=== PATIENT | male | born 2000 | race Two or more races ===

== ENCOUNTER 2019-05-19 21:41 | Emergency (ER) | payer OTHER, MEDICAID ==
--- NOTE | 2019-05-19 22:51 | EDM.PDOC ---
ED HPI GENERAL MEDICAL PROBLEM - General Chief Complaint: Gastrointestinal Problem Stated Complaint: RECENT MULTIPLE SURGERYS ABDOMIN SENT BY DOC Time Seen by Provider: 05/19/19 22:51 Source of Information: Reports: Patient History Limitations: Reports: No Limitations - History of Present Illness INITIAL COMMENTS - FREE TEXT/NARRATIVE: 18-year-old male presents to the ED with generalized mid abdominal cramping pain with emesis x3 in the last 5 hours. Mostly dry heaves at this point time. Initial emesis was mostly bilious. He did have a semi-formed bowel movement this morning without blood. History is positive for small bowel obstruction on May 10 requiring open laparotomy and removal of his appendix. This was done by Dr. Trevino general surgeon at [facility]. He was kept in hospital until Monday morning April 16 when he was discharged home. He has been slowly resuming a normal diet up until today. At present he feels bloated like he ate a pizza. He has not had very much to eat today at all. Has not passed any flatus for at least 10 hours. Patient had previous SHANNON fistula repair as a youngster and has a left upper quadrant laparotomy as part of that repair many years ago. Onset: Today Onset Date: 05/19/19 Onset Time: 09:00 (Feeling well after bowel movement this morning with generalized intermittent periumbilical cramping pain. He then started to feel more bloated and distended like eating a whole pizza.) Duration: Hour(s):, Getting Worse (Not passed any flatus for at least 10 hours.) Location: Reports: Abdomen Quality: Reports: Same as Previous Episode (His previous episode except the pain was much worse last time on May 10) Severity: Moderate (5-6 out of 10) Improves with: Reports: None Worsens with: Reports: Other Context: Denies: Activity, Exercise (In any fluids makes the pain worse), Lifting, Sick Contact, Trauma, Other Associated Symptoms: Reports: Loss of Appetite, Malaise, Nausea/Vomiting (He has vomited 3 times tonight. Initial emesis was bilious and then it has been mostly dry heaves.). 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 Denies: Fever, Chills HEENT: Reports: No Symptoms Respiratory: Reports: No Symptoms Cardiovascular: Reports: No Symptoms Endocrine: Reports: Fatigue GI/Abdominal: Reports: Abdominal Pain (Mostly periumbilical cramping but occasionally will shoot across both upper and left mid abdomen. No pain in his back.), Nausea ( this morning without blood), Vomiting, Other (Bowel movement) : Reports: No Symptoms (X3 tonight.) Musculoskeletal: Reports: No Symptoms Skin: Reports: No Symptoms Neurological: Reports: Dizziness (Dizzy when he stands up.) Psychiatric: Reports: No Symptoms Hematologic/Lymphatic: Reports: No Symptoms Immunologic: Reports: No Symptoms ED EXAM, GI/ABD - Physical Exam Exam: See Below Exam Limited By: No Limitations General Appearance: Alert, WD/WN, Mild Distress, Other (Temperature is 37.3 with a heart rate of 64 and sinus respiratory is 20 with O2 sats of 99% on room air. BP slightly elevated at 144/93.) Eyes: Bilateral: Normal Appearance (No scleral icterus or blepharal pallor.) Throat/Mouth: Other Head: Atraumatic, Normocephalic (Lung is mildly dry and coated.) Neck: Normal Inspection, Supple, Non-Tender, Full Range of Motion. No: Carotid Bruit, Lymphadenopathy (L), Lymphadenopathy (R) Respiratory/Chest: Lungs Clear, Normal Breath Sounds, No Accessory Muscle Use, Respiratory Distress (Mild tachypnea at rest.) Cardiovascular: Normal Peripheral Pulses, Regular Rate, Rhythm, No Edema, No Gallop, No Murmur, No Rub GI/Abdominal Exam: Tender, Abnormal Bowel Sounds (Sounds are hyperactive in all 4 quadrants.), Other (Mostly around the mid abdomen. And has a midline laparotomy wound that from the xiphisternum to the pubic symphysis with darrius in place. The wound is healing nicely without any signs of infection. There is an old healed left upper quadrant transverse incision from T-E fistula repair. Also a drain wound left upper quadrant of the abdomen that has scarred down from remote surgery) (Male) Exam: No Hernia Back Exam: Normal Inspection, Full Range of Motion. No: CVA Tenderness (L), CVA Tenderness (R) Extremities: Normal Inspection, Normal Range of Motion, Non-Tender, No Pedal Edema Neurological: Alert, Oriented, CN II-XII Intact, Normal Cognition Psychiatric: Anxious Skin Exam: Warm, Dry, Intact, Normal Color, No Rash Course - Vital Signs Last Recorded V/S: Last Vital Signs Temp 37.3 C 05/19/19 22:36 Pulse 64 05/19/19 22:36 Resp 20 05/19/19 22:36 BP 144/93 H 05/19/19 22:36 Pulse Ox 99 05/19/19 22:36 - Orders/Labs/Meds Orders: Active Orders 24 hr Category Date Time Status Gastrointestinal Tube Mgmt [RC] ASDIRECTED Care 05/20/19 01:25 Active Abdomen 1V Flat [CR] Stat Exams 05/19/19 23:01 Taken Abdomen Pelvis w Cont [CT] Stat Exams 05/20/19 00:01 Taken Dextrose 5%-0.9% NaCl [Dextrose 5%-Normal Saline] 1,000 Med 05/19/19 23:00 Active ml IV ASDIRECTED Sodium Chloride 0.9% [Saline Flush] Med 05/20/19 01:00 Active 10 ml FLUSH ONETIME PRN Nasogastric Orogastric Tube Insertion [OM.PC] Routine Oth 05/20/19 01:25 Ordered Medication Orders Dextrose/Sodium Chloride (Dextrose 5%-Normal Saline) 1,000 mls @ 999 mls/hr IV ASDIRECTED VICTORIANO Last Admin: 05/19/19 23:50 Dose: 999 mls/hr Sodium Chloride (Saline Flush) 10 ml FLUSH ONETIME PRN PRN Reason: KEEP VEIN OPEN Last Admin: 05/20/19 00:46 Dose: 10 ml Labs: Laboratory Tests 05/19/19 05/19/19 05/19/19 Range/Units 23:30 23:30 23:30 WBC 8.81 (4.23-9.07) K/mm3 RBC 5.34 (4.63-6.08) M/mm3 Hgb 14.9 (13.7-17.5) gm/dl Hct 44.7 (40.1-51.0) % MCV 83.7 (79.0-92.2) fl MCH 27.9 (25.7-32.2) pg MCHC 33.3 (32.2-35.5) g/dl RDW Std Deviation 38.6 (35.1-43.9) fL Plt Count 390 H (163-337) K/mm3 MPV 9.6 (9.4-12.3) fl Neutrophils % (Manual) 76 H (40-60) % Band Neutrophils % 0 (0-10) % Lymphocytes % (Manual) 17 L (20-40) % Atypical Lymphs % 0 % Monocytes % (Manual) 7 (2-10) % Eosinophils % (Manual) 0 L (0.8-7.0) % Basophils % (Manual) 0 L (0.2-1.2) Platelet Estimate Adequate RBC Morph Comment Normal PT 12.0 (9.7-12.0) SECONDS INR 1.11 APTT 35 H (22-31) SECONDS Sodium 137 (136-145) mEq/L Potassium 4.3 (3.5-5.1) mEq/L Chloride 101 (98-107) mEq/L Carbon Dioxide 25 (21-32) mEq/L Anion Gap 15.3 H (5-15) BUN 16 (7-18) mg/dL Creatinine 0.8 (0.7-1.3) mg/dL Est Cr Clr Drug Dosing 130.54 mL/min Estimated GFR (MDRD) > 60 (>60) mL/min BUN/Creatinine Ratio 20.0 H (14-18) Glucose 93 (74-106) mg/dL Calcium 9.7 (8.5-10.1) mg/dL Magnesium 1.9 (1.8-2.4) mg/dl Total Bilirubin 0.4 (0.2-1.0) mg/dL AST 14 L (15-37) U/L ALT 24 (16-63) U/L Alkaline Phosphatase 104 (46-116) U/L C-Reactive Protein 1.5 H* (<1.0) mg/dL Total Protein 8.4 H (6.4-8.2) g/dl Albumin 4.0 (3.4-5.0) g/dl Globulin 4.4 gm/dL Albumin/Globulin Ratio 0.9 L (1-2) Lipase 1062 H (73-393) U/L Meds: Medications Generic Name Dose Route Start Last Admin Trade Name Freq PRN Reason Stop Dose Admin Dextrose/Sodium Chloride 1,000 mls @ 999 mls/hr 05/19/19 23:00 05/19/19 23:50 Dextrose 5%-Normal Saline IV 999 mls/hr ASDIRECTED VICTORIANO Administration Sodium Chloride 10 ml 05/20/19 01:00 05/20/19 00:46 Saline Flush FLUSH 10 ml ONETIME PRN Administration KEEP VEIN OPEN Discontinued Medications Generic Name Dose Route Start Last Admin Trade Name Freq PRN Reason Stop Dose Admin Diatrizoate Meglum/Diatrizoate Sod 30 ml 05/20/19 01:00 05/20/19 00:46 Gastrografin 37% PO 05/20/19 01:01 30 ml ONETIME ONE Administration Hydromorphone HCl 0.25 mg 05/19/19 23:00 05/19/19 23:49 Dilaudid IVPUSH 05/19/19 23:01 0.25 mg ONETIME ONE Administration Hydromorphone HCl 0.25 mg 05/20/19 01:13 05/20/19 01:21 Dilaudid IVPUSH 05/20/19 01:14 0.25 mg ONETIME ONE Administration Iopamidol 100 ml 05/20/19 01:00 05/20/19 00:46 Isovue-300 (61%) IVPUSH 05/20/19 01:01 100 ml ONETIME ONE Administration Lidocaine HCl 10 ml 05/20/19 01:02 05/20/19 01:10 Xylocaine 2% Jelly MUCMEM 05/20/19 01:03 10 ml ONETIME ONE Administration Metoclopramide HCl 5 mg 05/19/19 22:59 05/19/19 23:49 Reglan IVPUSH 05/19/19 23:00 5 mg ONETIME ONE Administration Oxycodone/Acetaminophen 2 tab 05/19/19 23:53 Percocet 325-5 Mg PO 05/19/19 23:54 ONETIME ONE - Radiology Interpretation Free Text/Narrative:: 18-year-old male presents to the ED with recurrence of nausea vomiting and central abdominal cramping pain. On May 10 he underwent emergency surgery for a small bowel obstruction which apparently was a high small bowel obstruction. He has undergone repair of TE fistula as a youngster and has a transverse scar in his left upper quadrant of the abdomen. He remained in hospital until Monday, May 17. His nasogastric tube was pulled the day prior to discharge. He had started take clear fluids and was just trying to take soft diet today. He did have a normal bowel movement this morning. However he started to feel unwell after that bowel movement about 9 or 10:00 this morning and has felt gradually more distended as the day has gone on. Reports that has not passed any flatus for about 10 hours. Nauseated and still having central abdominal periumbilical cramping pain. Reveals mild tympany to percussion. His midline laparotomy wound still has darrius in it and is healing appropriately without any signs of infection. No localized tenderness appreciated. And KUB to be done. Routine labs to be done including a serum lipase. IV will be D5 normal saline at open. He will be given Reglan 5 mg IV and Dilaudid 0.25 mg IV as apparently he is very sensitive to narcotics. - Re-Assessments/Exams Free Text/Narrative Re-Assessment/Exam: 05/19/19 23:56 films of the abdomen reveal a largely dilated portion of bowel or stomach in the left upper quadrant of the abdomen. There appears to be a high bowel obstruction. I cannot be sure if this is stomach or markedly dilated bowel. Plan will be to pursue CT of the abdomen and pelvis with IV contrast and a small amount of oral contrast since he has been vomiting. 05/20/19 00:17 Labs reveal a normal white count at 8.81. Differential pending hemoglobin is 14.9 with hematocrit of 44.7. Platelet count 390,000. PT is 12.0 with an INR slightly elevated at 1.11. PTT is 35. Sodium 137 with a potassium of 4.3. Chloride is 101 with a bicarb of 25. Anion gap is 15.3. BUN is 16 with a creatinine of 0.8. ESR is greater than 60. Glucose is 93 with a calcium of 9.7. Magnesium is 1.9. Liver function is all normal. C- reactive protein is minimally elevated at 1.5. Total protein is 8.4 with an albumin fraction of 4.0. Lipase is mildly elevated at 1062. 05/20/19 01:26 CT of the abdomen is performed with oral contrast and IV contrast. The dilated portion of intrabdominal mass in the left upper quadrant of the abdomen is the stomach. There is a sliver of free air under the RT diaphragm--from recent laparotomy? Is a small left-sided pleural effusion. He has an associated mild to moderate hiatal hernia. The duodenum and proximal jejunum are dilated with thickened lamb with transition point right in the midline of the upper abdomen compatible with recurrent small bowel obstruction. Several loops of distal small bowel with air-fluid levels appreciated as well. There is some air in the rectal vault. His a fluid collection in the pelvis measuring 6.3 x 3.7 cm much more well-defined than on prior studies sent to me by [facility]. Multiple prominent mesenteric lymph nodes are appreciated. A nasogastric tube will be placed through his right naris. Given another 0.5 mg of Dilaudid IV for pain relief. He will be sent to [facility] for definitive surgical management since this is where he had his initial surgery carried out 14 days ago. Films have been sent by PACS. I will speak with the on-call surgeon. Tentatively he will be transferred by ground ambulance. 05/20/19 01:30: 1 call nurse at [facility] was busy and not able to take my call. She is going to call back as soon as possible. 05/20/19 02:05: I have spoken with Dr. Hayward on-call surgeon at [facility] and she is excepted care. The patient is believed to be taken to the ER at [facility] per ground ambulance. He is feeling somewhat better after Ativan 0.5 mg IV. I believe the nasogastric tube is also starting to decompress his upper abdomen making him feel somewhat better. Departure - Departure Time of Disposition: 02:25 Disposition: DC/Tfer to Acute Hospital 02 Condition: Fair Clinical Impression: Small bowel obstruction Pancreatitis, acute Qualifiers: Pancreatitis type: other Acute pancreatitis complication: no infection or necrosis Qualified Code(s): K85.80 - Other acute pancreatitis without necrosis or infection - Discharge Information *PRESCRIPTION DRUG MONITORING PROGRAM REVIEWED*: Not Applicable *COPY OF PRESCRIPTION DRUG MONITORING REPORT IN PATIENT JOYCE: Not Applicable Instructions: Small Bowel Obstruction, [id number] Referrals: Bhargav Trevino MD [Primary Care Provider] - Forms: ED Department Discharge Additional Instructions: Evaluation in the emergency room tonight in regards to recurrence of central periumbilical abdominal pain associate with nausea and vomiting of bilious material and then dry heaves since early last evening Of note we sent emergency surgery for small bowel obstruction was carried out on May 10 at [facility] and he was just discharged from that institution [address] of the abdomen reveals recurrence of small bowel obstruction with transition point right in the midline above the umbilicus. Distal small bowel is showing air-fluid levels as well. Labs reveal that he has an associated mild pancreatitis. T reveals a fluid collection in the pelvis and a sliver of free air under his right hemidiaphragm. For this reason the patient was transferred back to [facility] per ground ambulance for definitive surgical management. Sepsis Event Note - Evaluation Sepsis Screening Result: No Definite Risk - Focused Exam Vital Signs: Vital Signs Temp Pulse Resp BP Pulse Ox 05/19/19 22:36 37.3 C 64 20 144/93 H 99 Date Exam was Performed: 05/20/19 Time Exam was Performed: 01:35 - My Orders Last 24 Hours: My Active Orders 05/19/19 23:00 Dextrose 5%-0.9% NaCl [Dextrose 5%-Normal Saline] 1,000 ml IV ASDIRECTED 05/19/19 23:01 Abdomen 1V Flat [CR] Stat 05/20/19 00:01 Abdomen Pelvis w Cont [CT] Stat 05/20/19 01:00 Sodium Chloride 0.9% [Saline Flush] 10 ml FLUSH ONETIME PRN 05/20/19 01:25 Gastrointestinal Tube Mgmt [RC] ASDIRECTED Nasogastric Orogastric Tube Insertion [OM.PC] Routine - Assessment/Plan Last 24 Hours: My Active Orders 05/19/19 23:00 Dextrose 5%-0.9% NaCl [Dextrose 5%-Normal Saline] 1,000 ml IV ASDIRECTED 05/19/19 23:01 Abdomen 1V Flat [CR] Stat 05/20/19 00:01 Abdomen Pelvis w Cont [CT] Stat 05/20/19 01:00 Sodium Chloride 0.9% [Saline Flush] 10 ml FLUSH ONETIME PRN 05/20/19 01:25 Gastrointestinal Tube Mgmt [RC] ASDIRECTED Nasogastric Orogastric Tube Insertion [OM.PC] Routine
[2019-05-19] MEDS ORDERED: Metoclopramide 10 MG/2 ML SDV IVPUSH ONE (22:59)
[2019-05-19] MEDS ORDERED: HYDROmorphone 0.5 MG/0.5 ML Syringe IVPUSH ONE (23:00)
[2019-05-19] MEDS ORDERED: Dextrose 5%-0.9% NaCl 1,000 ML IV SCH (23:00)
[2019-05-19] MEDS ORDERED: Acetaminophen/oxyCODONE 325-5 MG Tab PO ONE (23:53)
[2019-05-20] MEDS ORDERED: Iopamidol 612 MG/ML 100 ML Bottle IVPUSH ONE (01:00)
[2019-05-20] MEDS ORDERED: Sodium Chloride 0.9% 10 ML Syringe FLUSH PRN (01:00)
[2019-05-20] MEDS ORDERED: Diatrizoate Meglumine/Diatrizoate Sodium 37% 120 ML Bottle PO ONE (01:00)
[2019-05-20] MEDS ORDERED: Lidocaine 2% Jelly 10 ML Urojet MUCMEM ONE (01:02)
[2019-05-20] MEDS ORDERED: HYDROmorphone 0.5 MG/0.5 ML Syringe IVPUSH ONE (01:13)
[2019-05-20] MEDS ORDERED: LORazepam 2 MG/ML SDV IVPUSH ONE ×2 (01:44→02:39)
[2019-05-20] MEDS ORDERED: Dextrose 5%-Lactated Ringers 1,000 ML IV SCH (02:15)
--- NOTE | 2019-05-20 06:55 | CR ---
Abdomen: Supine view of the abdomen was obtained. Comparison: No prior abdominal x-ray, previous CT exam of the abdomen and pelvis dated 05/10/19. Findings: Gas dilated loops of small bowel are noted. Midline surgical darrius are present. No free air is seen. Bony structures appear within normal limits. Impression: 1. Gas dilated loops of small bowel. Uncertain if the findings represent residual changes of dilatation from prior small bowel obstruction or represent an ileus. Diagnostic code #3 This report was dictated in [place] Standard Time
--- NOTE | 2019-05-20 07:06 | CT ---
CT abdomen and pelvis Technique: Multiple axial sections were obtained from above the dome of the diaphragm inferiorly through the pubic symphysis. Intravenous and oral contrast was utilized. Comparison: Previous CT abdomen and pelvis study of 05/10/19. Findings: Small left-sided pleural effusion is noted. Liver contains no focal abnormality. Small amount of free air is seen most likely from recent surgery. Liver contains no focal abnormality. Spleen appears within normal limits. Adrenal glands show no nodule. Kidneys show symmetric contrast enhancement without hydronephrosis or mass. Pancreas is normal. Gallbladder contains no calcified gallstones. Aorta shows no aneurysm. No retroperitoneal adenopathy or mesenteric abnormalities are seen. Fluid is seen within the pelvis which appears better defined than on prior exam and measures 6.0 x 3.5 cm. Diffuse fluid and air-filled small bowel loops are seen. Some areas of bowel wall thickening are also noted. Small bowel is dilated up to transverse measurement of 4.3 cm. Appendix is not seen with certainty. Impression: 1. Dilated fluid and air-filled small bowel loops. Small bowel is dilated up to transverse measurement of 4.3 cm. Areas of bowel wall thickening are also seen within the small bowel. Difficult to exclude recurrent distal small bowel obstruction. 2. Fluid within the pelvis, difficult to exclude abscess. Measurements as noted above. 3. Small amount of free air which may relate to previous surgery although patient is apparently at day 10, small amount of free air slightly more than expected at this postoperative time. Bowel perforation is difficult to exclude. Diagnostic code #5 This report was dictated in [place] Standard Time I agree with preliminary report from [facility], finalized on 05/20/19, 2:44 AM Central Time
== END 2019-05-20 02:53 ==
LOC: JD.ED 21:41
DX: K85.80 Other acute pancreatitis without necrosis or infection (principal); K56.609 Unspecified intestinal obstruction, unspecified as to partial versus complete obstruction; Z88.8 Allergy status to other drugs, medicaments and biological substances; Z88.5 Allergy status to narcotic agent
CPT/HCPCS: 36415; 43752; 74018; 74177; 80053; 83690; 83735; 85007; 85027; 85610; 85730; 86140; 96361; 96374; 96375; 96376; 99285; J1170; J2060; J2765; J7042; J7121; Q9963; Q9967

== ENCOUNTER 2019-05-28 00:46 | Emergency (ER) | payer OTHER ==
[2019-05-28] MEDS ORDERED: HYDROmorphone 1 MG/ML Syringe IVPUSH STA (02:08)
[2019-05-28] MEDS ORDERED: Ondansetron 4 MG/2 ML SDV IVPUSH ONE (02:08)
--- NOTE | 2019-05-28 02:14 | EDM.PDOC ---
ED HPI GENERAL MEDICAL PROBLEM - General Chief Complaint: Abdominal Pain Stated Complaint: ABDOMINAL PAIN VOMITING Time Seen by Provider: 05/28/19 01:41 Source of Information: Reports: Patient, Old Records (ED visit 05/19/2019) History Limitations: Reports: No Limitations - History of Present Illness INITIAL COMMENTS - FREE TEXT/NARRATIVE: Mr. Retana is a very pleasant 18-year-old man with a past medical history significant for a tracheoesophageal fistula as an , repaired with left lower rib material. He developed a small bowel obstruction on 05/10/2019, requiring an open laparotomy and appendectomy, performed at [facility]. He was discharged home on 05/17/2019. He then presented to our ED 2 days later, on 05/19/2019, with a complaint of 5 hours of mid-abdominal pain and emesis. Work-up included a CBC, CMP, magnesium level, lipase level, CRP, coags, and abdominal x-ray, and a CT scan of his abdomen and pelvis with oral and IV contrast. His CBC, CMP, magnesium level and coags were unremarkable, while his lipase was found to be elevated at 1062, and his CRP mildly elevated at 1.5. The abdominal x-ray demonstrated gas dilated loops of small bowel, possibly due to residual changes from his prior SBO versus new ileus. The CT scan of his abdomen and pelvis demonstrated dilated fluid and air-filled small bowel loops, consistent with a distal SBO. Bowel perforation and pelvic abscess were also possible. An NG tube was placed , and the patient was transferred back to [facility]. The patient states that after he was transferred to [facility], the NG tube was kept in place for several days. He did not require another surgery. He believes that he was discharged home on 05/22/2019 or , 2019. He states that he was prescribed an opioid pain reliever, but did not fill the prescription. He states that he does not have a follow-up appointment. The patient now returns to the ED stating that he redeveloped abdominal pain about 2 hours ago, shortly before midnight MST. He states that his current pain is "aching" and "stabbing", felt in the epigastric area. It does not radiate. It comes and goes, persisting for about 35 to 45 minutes, but he is not sure how long it goes away for. He states that his current pain is the same as his previous SBO pain. He has had nausea and slight emesis for about 1 hour. No recent fever, chills, cough, dyspnea, constipation, diarrhea, or urinary symptoms. He last ate around 23:00 MST. The patient does not have a PCP. His Surgeon at [facility] is Dr. Bhargav Trevino. He received an influenza vaccine this season. Middle Abdomen Pain Score (Numeric/FACES): 6 - Related Data Allergies Allergy/AdvReac Type Severity Reaction Status Date / Time lamotrigine [From Lamictal] Allergy Cannot Verified 05/28/19 00:58 Remember morphine Allergy Drowsiness Verified 05/28/19 00:58 Home Meds: Home Meds . [No Known Home Meds] 05/19/19 [History] Past Medical History Respiratory History: Reports: Other (See Below) (Tracheoesophageal fistula, repaired as an ) Gastrointestinal History: Reports: Bowel Obstruction - Past Surgical History HEENT Surgical History: Reports: Other (See Below) (Repair of tracheoesophageal fistula as an infant, with lower left rib material) GI Surgical History: Reports: Appendectomy, Other (See Below) (Exploratory laparotomy for SBO) Social & Family History - Tobacco Use Smoking Status *Q: Former Smoker Years of Tobacco use: 1 Packs/Tins Daily: 0.3 Month/Year Tobacco Last Used: Quit Apr 2019 - Caffeine Use Caffeine Use: Reports: None - Alcohol Use Alcohol Use History: Yes Alcohol Use Frequency: Rarely - Recreational Drug Use Recreational Drug Use: No - Living Situation & Occupation Living situation: Reports: Single, with Significant Other (Girlfriend) Occupation: Student ([email or web address], [employer]) ED ROS GENERAL - Review of Systems Review Of Systems: Comprehensive ROS is negative, except as noted in HPI. ED EXAM, GI/ABD - Physical Exam Exam: See Below Exam Limited By: No Limitations General Appearance: Alert, No Apparent Distress, Thin Eyes: Bilateral: Normal Appearance, EOMI Ears: Normal External Exam, Hearing Grossly Normal Nose: Normal Inspection Throat/Mouth: Normal Inspection, Normal Lips, Normal Voice, No Airway Compromise Head: Atraumatic, Normocephalic Neck: Normal Inspection, Full Range of Motion, Other (Well-healed tracheal scar) Respiratory/Chest: No Respiratory Distress, Lungs Clear, Normal Breath Sounds, No Accessory Muscle Use Cardiovascular: Normal Peripheral Pulses, Regular Rate, Rhythm, No Edema, No Gallop, No JVD, No Murmur, No Rub GI/Abdominal Exam: Soft, No Organomegaly, No Distention, No Abnormal Bruit, No Mass, Tender (Primarily to the left upper quadrant, less tender elsewhere. No area is nontender.), Abnormal Bowel Sounds (Hyperactive), Other (Healing midline surgical wound extending from the epigastrium to the pubic symphysis. Well-healed diagonal left upper quadrant surgical wound. Well-healed drain wound left upper quadrant.) (Male) Exam: Deferred Rectal (Males) Exam: Deferred Back Exam: Normal Inspection, Full Range of Motion, NT Extremities: Normal Inspection, Normal Range of Motion, No Pedal Edema, Normal Capillary Refill Neurological: Alert, Oriented, Normal Cognition, No Motor/Sensory Deficits Psychiatric: Normal Affect Skin Exam: Warm, Dry, Intact, Normal Color, No Rash Course - Vital Signs Last Recorded V/S: Last Vital Signs Temp 36.7 C 05/28/19 00:53 Pulse 93 05/28/19 00:53 Resp 20 05/28/19 00:53 BP 159/102 H 05/28/19 00:53 Pulse Ox 100 05/28/19 00:53 - Orders/Labs/Meds Orders: Active Orders 24 hr Category Date Time Status Gastrointestinal Tube Mgmt [RC] ASDIRECTED Care 05/28/19 04:33 Active Abdomen Pelvis w Cont [CT] Stat Exams 05/28/19 02:08 Taken Sodium Chloride 0.9% [Normal Saline] 1,000 ml Med 05/28/19 02:15 Active IV ASDIRECTED Nasogastric Orogastric Tube Insertion [OM.PC] Routine Oth 05/28/19 04:33 Ordered Medication Orders Sodium Chloride (Normal Saline) 1,000 mls @ 150 mls/hr IV ASDIRECTED VICTORIANO Last Admin: 05/28/19 02:15 Dose: 150 mls/hr Labs: Laboratory Tests 05/28/19 05/28/19 Range/Units 02:17 02:17 WBC 9.45 H (4.23-9.07) K/mm3 RBC 5.07 (4.63-6.08) M/mm3 Hgb 14.2 (13.7-17.5) gm/dl Hct 43.2 (40.1-51.0) % MCV 85.2 (79.0-92.2) fl MCH 28.0 (25.7-32.2) pg MCHC 32.9 (32.2-35.5) g/dl RDW Std Deviation 39.6 (35.1-43.9) fL Plt Count 370 H (163-337) K/mm3 MPV 9.9 (9.4-12.3) fl Neutrophils % (Manual) 74 H (40-60) % Band Neutrophils % 2 (0-10) % Lymphocytes % (Manual) 19 L (20-40) % Atypical Lymphs % 0 % Monocytes % (Manual) 3 (2-10) % Eosinophils % (Manual) 2 (0.8-7.0) % Basophils % (Manual) 0 L (0.2-1.2) Platelet Estimate Adequate Plt Morphology Comment Normal RBC Morph Comment Normal Sodium 141 (136-145) mEq/L Potassium 3.9 (3.5-5.1) mEq/L Chloride 104 (98-107) mEq/L Carbon Dioxide 27 (21-32) mEq/L Anion Gap 13.9 (5-15) BUN 14 (7-18) mg/dL Creatinine 1.1 (0.7-1.3) mg/dL Est Cr Clr Drug Dosing 94.94 mL/min Estimated GFR (MDRD) > 60 (>60) mL/min BUN/Creatinine Ratio 12.7 L (14-18) Glucose 119 H (74-106) mg/dL Calcium 9.2 (8.5-10.1) mg/dL Total Bilirubin 0.1 L (0.2-1.0) mg/dL AST 8 L (15-37) U/L ALT 25 (16-63) U/L Alkaline Phosphatase 119 H (46-116) U/L Total Protein 7.7 (6.4-8.2) g/dl Albumin 3.9 (3.4-5.0) g/dl Globulin 3.8 gm/dL Albumin/Globulin Ratio 1.0 (1-2) Lipase 438 H (73-393) U/L Meds: Medications Generic Name Dose Route Start Last Admin Trade Name Freq PRN Reason Stop Dose Admin Sodium Chloride 1,000 mls @ 150 mls/hr 05/28/19 02:15 05/28/19 02:15 Normal Saline IV 150 mls/hr ASDIRECTED VICTORIANO Administration Discontinued Medications Generic Name Dose Route Start Last Admin Trade Name Peterson PRN Reason Stop Dose Admin Hydromorphone HCl 0.5 mg 05/28/19 02:08 05/28/19 02:16 Dilaudid IVPUSH 05/28/19 02:09 0.5 mg ONETIME STA Administration Hydromorphone HCl 0.5 mg 05/28/19 04:47 05/28/19 04:51 Dilaudid IVPUSH 05/28/19 04:48 0.5 mg ONETIME ONE Administration Hydromorphone HCl Confirm 05/28/19 04:49 05/28/19 04:54 Dilaudid Administered 05/28/19 04:50 Not Given Dose 0.5 mg .ROUTE .STK-MED ONE Lidocaine HCl Confirm 05/28/19 04:43 05/28/19 04:53 Xylocaine 2% Jelly Administered 05/28/19 04:44 Not Given Dose 10 ml .ROUTE .STK-MED ONE Lidocaine HCl 10 ml 05/28/19 04:52 05/28/19 04:53 Xylocaine 2% Jelly MUCMEM 05/28/19 04:53 10 ml ONETIME ONE Administration Ondansetron HCl 4 mg 05/28/19 02:08 05/28/19 02:16 Zofran IVPUSH 05/28/19 02:09 4 mg ONETIME ONE Administration - Re-Assessments/Exams Free Text/Narrative Re-Assessment/Exam: 05/28/19 02:10 As above, the patient had a small bowel obstruction requiring exploratory laparotomy and appendectomy on 05/10/2019. He then suffered a recurrence of a SBO on 05/19/2019, which was able to be relieved with an NG tube alone. He is now back with upper abdominal pain that he states feels an awful lot like his prior SBOs. I am concerned that he has a recurrent SBO, therefore I have ordered blood work and a CT scan of his abdomen and pelvis with oral and IV contrast to evaluate. In the meantime, the patient will be given IV Dilaudid, IV Zofran, and IV fluid. 05/28/19 03:28 The patient's CBC is remarkable for a WBC count mildly elevated at 9.45, but with only 2% bandemia. His platelets are elevated at 370,000, with the remainder of his CBC being unremarkable. His CMP is remarkable for a blood glucose slightly elevated 119, and an alkaline phosphatase is slightly elevated at 119. The remainder of his CMP is unremarkable. His lipase is elevated at 438. While elevated, the patient's lipase is under 3 times the upper limit of normal , therefore not consistent with pancreatitis. 05/28/19 04:29 CT of the abdomen and pelvis with oral and IV contrast as read by [facility] as: Stomach and bowel: Gastric distention. Multiple abnormally dilated small bowel loops are identified and collapsed loops are also seen. Findings are consistent with small bowel obstruction. Areas of small bowel narrowing and thickening are seen in the mid abdomen. The colon is moderately distended with gas and fecal material, suggesting early/partial or intermittent obstruction. There is interposition of small bowel loops anterior to the transverse colon. Impression: 1. Findings consistent with small bowel obstruction, likely early/partial or intermittent, as described above. There may be component of ileus as well. 2. Peripherally enhancing collection in the pelvis, suspicious for abscess. 3. Additional findings as above. Based on the above, I will order an NG tube to [facility], push the CT images to [facility], and seek to transfer the patient there, as no beds are available at this facility. 05/28/19 04:32 CT images pushed to [facility]. 05/28/19 04:49 Case discussed with Alejandrina at [facility] Call at 04:42. Case then discussed with Dr. Worley, Surgeon on-call at [facility], at 04:47. He accepted the patient for transfer to their facility, for direct admission to him. The patient will be transported by ground ambulance. Departure - Departure Time of Disposition: 04:51 Disposition: DC/Tfer to Acute Hospital 02 Condition: Good Clinical Impression: Small bowel obstruction - Discharge Information *PRESCRIPTION DRUG MONITORING PROGRAM REVIEWED*: Not Applicable *COPY OF PRESCRIPTION DRUG MONITORING REPORT IN PATIENT JOYCE: Not Applicable Referrals: Bhargav Trevino MD [Ordering Only Provider] - Forms: ED Department Discharge Sepsis Event Note - Evaluation Sepsis Screening Result: No Definite Risk - Focused Exam Vital Signs: Vital Signs Temp Pulse Resp BP Pulse Ox 05/28/19 00:53 36.7 C 93 20 159/102 H 100 Date Exam was Performed: 05/28/19 Time Exam was Performed: 04:57 - My Orders Last 24 Hours: My Active Orders 05/28/19 02:08 Abdomen Pelvis w Cont [CT] Stat 05/28/19 02:15 Sodium Chloride 0.9% [Normal Saline] 1,000 ml IV ASDIRECTED 05/28/19 04:33 Gastrointestinal Tube Mgmt [RC] ASDIRECTED Nasogastric Orogastric Tube Insertion [OM.PC] Routine - Assessment/Plan Last 24 Hours: My Active Orders 05/28/19 02:08 Abdomen Pelvis w Cont [CT] Stat 05/28/19 02:15 Sodium Chloride 0.9% [Normal Saline] 1,000 ml IV ASDIRECTED 05/28/19 04:33 Gastrointestinal Tube Mgmt [RC] ASDIRECTED Nasogastric Orogastric Tube Insertion [OM.PC] Routine
[2019-05-28] MEDS ORDERED: Sodium Chloride 0.9% 1,000 ML IV SCH (02:15)
[2019-05-28] MEDS ORDERED: Lidocaine 2% Jelly 10 ML Urojet ONE (04:43)
[2019-05-28] MEDS ORDERED: HYDROmorphone 0.5 MG/0.5 ML Syringe IVPUSH ONE (04:47)
[2019-05-28] MEDS ORDERED: HYDROmorphone 0.5 MG/0.5 ML Syringe ONE (04:49)
[2019-05-28] MEDS ORDERED: Lidocaine 2% Jelly 10 ML Urojet MUCMEM ONE (04:52)
--- NOTE | 2019-05-28 07:20 | CT ---
CT abdomen and pelvis Technique: Multiple axial sections were obtained from above the dome of the diaphragm inferiorly through the pubic symphysis. Intravenous and oral contrast was utilized. Comparison: Prior CT abdomen and pelvis exam of 05/20/19. Findings: Dilated small bowel loops are noted. Scattered gas within colon is seen. Small to moderate sized hiatal hernia is seen. Findings radiographically have the appearance of mid to distal small bowel obstruction. Small fluid collection seen within the pelvis which has diminished in size from prior exam. This currently measures about 3.7 cm in greatest dimension. On previous study this had a measurement of 5.8 cm. This could represent a decreasing abscess. Other findings: The visualized lung bases show nothing acute. Liver shows no focal abnormality. Small partially calcified gallstones is seen within the gallbladder. Spleen appears within normal limits. Pancreas appears normal. Kidneys show symmetric contrast enhancement without hydronephrosis or mass. Aorta shows no aneurysm. No retroperitoneal adenopathy or mesenteric abnormalities are seen. No pelvic mass or adenopathy is identified. Appendix not visualized with certainty. Impression: 1. Continuing dilated small bowel loops. Findings radiographically have the appearance of the mid to distal small bowel obstruction, findings do appear slightly improved from previous exam. These findings may also represent pseudoobstruction representing prominent small bowel ileus. Mild amount of air within the colon which is felt to be within normal limits. 2. Collection within the posterior pelvis possibly due to abscess which is decreasing in size from prior study. This fluid collection currently measures 3.7 cm and previously measured 5.8 cm. 3. Small partially calcified gallstone. Hiatal hernia. 4. No additional abnormality is appreciated. Diagnostic code #5 This report was dictated in [place] Standard Time I agree with preliminary report from [facility], finalized on 05/28/19, 5:26 AM Central Time
== END 2019-05-28 06:00 ==
LOC: JD.ED 00:46
DX: K56.609 Unspecified intestinal obstruction, unspecified as to partial versus complete obstruction (principal); Z88.8 Allergy status to other drugs, medicaments and biological substances; Z88.5 Allergy status to narcotic agent; Z87.891 Personal history of nicotine dependence
CPT/HCPCS: 36415; 74177; 80053; 83690; 85007; 85027; 96361; 96374; 96375; 96376; 99285; J1170; J2405; J7030